=== PATIENT | male | born 1960 ===

== ENCOUNTER 2020-11-28 10:35 | Emergency (ER) | payer BC ==
[2020-11-28] MEDS: Nitroglycerin 0.4 MG Tab.SL SL PRN (11:03)
[2020-11-28] MEDS: Aspirin 81 MG Tab.Chew PO ONE (11:03)
[2020-11-28 11:19] LABS: CHLORIDE,CL 103 mmol/L (98-107); SODIUM,NA 140 mmol/L (136-145)
[2020-11-28] MEDS: Morphine 4 MG/ML Syringe IVPUSH ONE (11:24)
[2020-11-28] MEDS: Ondansetron 4 MG/2 ML SDV IVPUSH ONE (11:24)
[2020-11-28] MEDS: Morphine 4 MG/ML Syringe ONE (11:37)
[2020-11-28] MEDS: Ondansetron 4 MG/2 ML SDV ONE (11:37)
[2020-11-28] MEDS: GI Cocktail Oral Solution 30 ML PO ONE (11:41)
--- NOTE | 2020-11-28 12:02 | EDM.PDOC ---
ED HPI GENERAL MEDICAL PROBLEM - General Chief Complaint: Chest Pain Stated Complaint: chest pain Time Seen by Provider: 11/28/20 10:56 Source of Information: Reports: Patient History Limitations: Reports: No Limitations - History of Present Illness INITIAL COMMENTS - FREE TEXT/NARRATIVE: Centralized substernal chest pain that started yesterday. Radiates to left chest with deep breathing. No other radiation. Worsening. No history of HI. Does take BP meds. Family history of CAD/heart failure. No recent injury/illness. No history Covid but has had both immunizations. Denies fevers/chills/HEENT changes. No SOB/cough/wheezing. No sweating/nausea/emesis/bowel changes. No focal neuro changes or other pain complaints. - Related Data Allergies Allergy/AdvReac Type Severity Reaction Status Date / Time No Known Allergies Allergy Verified 11/28/20 10:36 Home Meds: Home Meds Aspirin [Children's Aspirin] 81 mg PO DAILY 11/28/20 [History] Simvastatin 10 mg PO DAILY 11/28/20 [History] lisinopriL [Lisinopril] 10 mg PO DAILY 11/28/20 [History] Past Medical History Cardiovascular History: Reports: High Cholesterol, Hypertension Social & Family History - Tobacco Use Tobacco Use Status *Q: Former Tobacco User Tobacco Use Within Last Twelve Months: Cigarettes Tobacco Use Comment: Quit within the last year - Alcohol Use Alcohol Use History: Yes Alcohol Use Frequency: Socially - Recreational Drug Use Recreational Drug Use: No Drug Use in Last 12 Months: No ED ROS GENERAL - Review of Systems Review Of Systems: Comprehensive ROS is negative, except as noted in HPI. ED EXAM, GENERAL - Physical Exam Exam: See Below Exam Limited By: No Limitations General Appearance: Alert, Anxious, Moderate Distress Eye Exam: Bilateral Eye: EOMI, PERRL Ears: Normal External Exam, Hearing Grossly Normal Nose: No: Nasal Deformity, Nasal Swelling, Nasal Drainage Throat/Mouth: Normal Lips, Normal Voice, No Airway Compromise Head: Atraumatic, Normocephalic Neck: Normal Inspection, Supple, Non-Tender, Full Range of Motion Respiratory/Chest: No Respiratory Distress, Lungs Clear, Normal Breath Sounds, No Accessory Muscle Use, Chest Non-Tender Cardiovascular: No Edema, No Murmur, Tachycardia GI/Abdominal: Soft, Non-Tender, No Distention (Male) Exam: Deferred Rectal (Males) Exam: Deferred Back Exam: Normal Inspection Extremities: Normal Inspection, Normal Capillary Refill Neurological: Alert, Oriented, Normal Cognition, Normal Gait, No Motor/Sensory Deficits Psychiatric: Normal Affect, Normal Mood Skin Exam: Warm, Dry, Intact, Normal Color #1 Interpretation EKG Date: 11/28/20 Time: 10:41 Rhythm: A-Flutter (sinus tach) Rate (Beats/Min): 118 [place]: Normal P-Wave: Present QRS: Normal ST-T: Other (diffuse elevation noted,most pronounced V1, V2, II, AVF) QT: Normal Comparison: NA - No Prior EKG Course - Vital Signs Last Recorded V/S: Last Vital Signs Temp Pulse Resp BP 158/88 H 11/28/20 11:03 Pulse Ox - Orders/Labs/Meds Orders: Active Orders 24 hr Category Date Time Status EKG Documentation Completion [RC] ASDIRECTED Care 11/28/20 10:39 Active EKG Documentation Completion [RC] ASDIRECTED Care 11/28/20 10:56 Active Chest 1V Frontal [CR] Stat Exams 11/28/20 11:22 Taken Nitroglycerin [Nitrostat] Med 11/28/20 10:58 Active 0.4 mg SL Q5M PRN Medication Orders Nitroglycerin (Nitroglycerin 0.4 Mg Tab.Sl) 0.4 mg SL Q5M PRN PRN Reason: Chest Pain Last Admin: 11/28/20 11:03 Dose: 0.4 mg Documented by: PATRICK Labs: Laboratory Tests 11/28/20 11/28/20 11/28/20 Range/Units 10:45 10:45 10:45 WBC 11.9 H (4.0-10.2) K/uL RBC 5.18 (4.33-5.41) M/uL Hgb 15.7 (13.1-16.8) g/dL Hct 45.7 (39.0-49.0) % MCV 88.2 (84.0-98.0) fL MCH 30.3 (28.2-33.3) pg MCHC 34.4 (31.7-36.0) g/dL RDW 13.1 (11.2-14.1) % Plt Count 211 (150-350) K/uL Neut % (Auto) 76.4 (45.0-80.0) % Lymph % (Auto) 12.7 (10.0-50.0) % [place] % (Auto) 9.9 (2.0-14.0) % Eos % (Auto) 0.7 (0.0-5.0) % Baso % (Auto) 0.3 (0.0-2.0) % Neut # (Auto) 9.12 H (1.40-7.00) K/uL Lymph # (Auto) 1.52 (0.50-3.50) K/uL [place] # (Auto) 1.18 H (0.00-1.00) K/uL Eos # (Auto) 0.08 (0.00-0.50) K/uL Baso # (Auto) 0.04 (0.00-0.20) K/uL D-Dimer, Quantitative 310 (0-400) ng/mL Sodium 140 (136-145) mmol/L Potassium 4.2 (3.5-5.1) mmol/L Chloride 103 (98-107) mmol/L Carbon Dioxide 26.5 (21.0-32.0) mmol/L BUN 21 H (7-18) mg/dL Creatinine 0.86 (0.51-1.17) mg/dL Est Cr Clr Drug Dosing TNP Estimated GFR (MDRD) > 60 mL/min Glucose 127 H (70-99) mg/dL Lactic Acid (0.4-2.0) mmol/L Calcium 9.1 (8.5-10.1) mg/dL Magnesium 1.8 (1.8-2.4) mg/dL Total Bilirubin 0.9 (0.2-1.0) mg/dL AST 18 (15-37) U/L ALT 41 (12-78) U/L Alkaline Phosphatase 69 (46-116) IU/L Troponin I 0.000 (0.000-0.056) ng/mL NT-Pro-B Natriuret Pep 74 (0-125) pg/mL Total Protein 7.7 (6.4-8.2) g/dL Albumin 4.0 (3.4-5.0) g/dL 11/28/20 Range/Units 10:45 WBC (4.0-10.2) K/uL RBC (4.33-5.41) M/uL Hgb (13.1-16.8) g/dL Hct (39.0-49.0) % MCV (84.0-98.0) fL MCH (28.2-33.3) pg MCHC (31.7-36.0) g/dL RDW (11.2-14.1) % Plt Count (150-350) K/uL Neut % (Auto) (45.0-80.0) % Lymph % (Auto) (10.0-50.0) % [place] % (Auto) (2.0-14.0) % Eos % (Auto) (0.0-5.0) % Baso % (Auto) (0.0-2.0) % Neut # (Auto) (1.40-7.00) K/uL Lymph # (Auto) (0.50-3.50) K/uL [place] # (Auto) (0.00-1.00) K/uL Eos # (Auto) (0.00-0.50) K/uL Baso # (Auto) (0.00-0.20) K/uL D-Dimer, Quantitative (0-400) ng/mL Sodium (136-145) mmol/L Potassium (3.5-5.1) mmol/L Chloride (98-107) mmol/L Carbon Dioxide (21.0-32.0) mmol/L BUN (7-18) mg/dL Creatinine (0.51-1.17) mg/dL Est Cr Clr Drug Dosing Estimated GFR (MDRD) mL/min Glucose (70-99) mg/dL Lactic Acid 1.7 (0.4-2.0) mmol/L Calcium (8.5-10.1) mg/dL Magnesium (1.8-2.4) mg/dL Total Bilirubin (0.2-1.0) mg/dL AST (15-37) U/L ALT (12-78) U/L Alkaline Phosphatase (46-116) IU/L Troponin I (0.000-0.056) ng/mL NT-Pro-B Natriuret Pep (0-125) pg/mL Total Protein (6.4-8.2) g/dL Albumin (3.4-5.0) g/dL Meds: Medications Generic Name Dose Route Start Last Admin Trade Name Freq PRN Reason Stop Dose Admin Nitroglycerin 0.4 mg 11/28/20 10:58 11/28/20 11:03 Nitroglycerin 0.4 Mg Tab.Sl SL 0.4 mg Q5M PRN Administration Chest Pain Discontinued Medications Generic Name Dose Route Start Last Admin Trade Name Freq PRN Reason Stop Dose Admin Al Hydroxide/Mg Hydroxide 30 ml 11/28/20 11:22 11/28/20 11:41 Gi Cocktail Oral Solution 30 Ml PO 11/28/20 11:23 30 ml ONETIME ONE Administration Aspirin 324 mg 11/28/20 10:57 11/28/20 11:03 Aspirin 81 Mg Tab.Chew PO 11/28/20 10:58 324 mg ONETIME ONE Administration Morphine Sulfate 4 mg 11/28/20 11:19 11/28/20 11:24 Morphine 4 Mg/Ml Syringe IVPUSH 11/28/20 11:20 4 mg ONETIME ONE Administration Morphine Sulfate Confirm 11/28/20 11:20 11/28/20 11:37 Morphine 4 Mg/Ml Syringe Administered 11/28/20 11:21 Not Given Dose 4 mg .ROUTE .STK-MED ONE Ondansetron HCl 4 mg 11/28/20 11:19 11/28/20 11:24 Ondansetron 4 Mg/2 Ml Sdv IVPUSH 11/28/20 11:20 4 mg ONETIME ONE Administration Ondansetron HCl Confirm 11/28/20 11:20 11/28/20 11:37 Ondansetron 4 Mg/2 Ml Sdv Administered 11/28/20 11:21 Not Given Dose 4 mg .ROUTE .STK-MED ONE - Re-Assessments/Exams Free Text/Narrative Re-Assessment/Exam: 11/28/20 12:33 Xray unremarkable. EKG showed mild ST elevation that appeared to be more pronounced in V1, V2, II. Received ASA. Nitro did not affect the pain. MS nuñez Call placed to [facility] and reviewed EKG with Dr. Ortiz from Cardiology. He felt that there was a diffuse pattern of elevation throughout the leads and leaned towards myocarditis/pericarditis. Troponin reported as negative. Transfer arranged to [facility] so that patient could receive cardiac echo and have chest pain workup continued at their facility. DDimer/lactic/proBNP negative. Minimal elevation WBC. accepting hospitalist at [facility]. Departure - Departure Time of Disposition: 12:02 Disposition: DC/Tfer to Acute Hospital 02 Condition: Good Clinical Impression: Chest pain Qualifiers: Chest pain type: unspecified Qualified Code(s): R07.9 - Chest pain, unspecified - Discharge Information *PRESCRIPTION DRUG MONITORING PROGRAM REVIEWED*: Not Applicable *COPY OF PRESCRIPTION DRUG MONITORING REPORT IN PATIENT RADHA: Not Applicable Referrals: Fco Peacock PA [Primary Care Provider] - Forms: ED Department Discharge Sepsis Event Note (ED) - Focused Exam Vital Signs: Vital Signs BP 11/28/20 11:03 158/88 H - My Orders Last 24 Hours: My Active Orders 11/28/20 10:39 EKG Documentation Completion [RC] ASDIRECTED 11/28/20 10:56 EKG Documentation Completion [RC] ASDIRECTED 11/28/20 10:58 Nitroglycerin [Nitrostat] 0.4 mg SL Q5M PRN 11/28/20 11:22 Chest 1V Frontal [CR] Stat - Assessment/Plan Last 24 Hours: My Active Orders 11/28/20 10:39 EKG Documentation Completion [RC] ASDIRECTED 11/28/20 10:56 EKG Documentation Completion [RC] ASDIRECTED 11/28/20 10:58 Nitroglycerin [Nitrostat] 0.4 mg SL Q5M PRN 11/28/20 11:22 Chest 1V Frontal [CR] Stat
== END 2020-11-28 12:20 ==
LOC: LL.ED 10:35
DX: R07.2 Precordial pain (principal); I10 Essential (primary) hypertension; E78.00 Pure hypercholesterolemia, unspecified; R00.0 Tachycardia, unspecified; Z87.891 Personal history of nicotine dependence; Z79.82 Long term (current) use of aspirin; Z79.899 Other long term (current) drug therapy
CPT/HCPCS: 36415; 71045; 80053; 83605; 83735; 83880; 84484; 85025; 85379; 93005; 93010; 96374; 96375; 99284; 99285-25; A9270-GY; J2270; J2405

== ENCOUNTER 2020-12-13 22:59 | Emergency (ER) | payer BC ==
--- NOTE | 2020-12-13 23:32 | EDM.PDOC ---
ED HPI GENERAL MEDICAL PROBLEM - General Chief Complaint: Chest Pain Stated Complaint: Chest pain, SOB Time Seen by Provider: 12/13/20 23:10 Source of Information: Reports: Patient History Limitations: Reports: No Limitations - History of Present Illness INITIAL COMMENTS - FREE TEXT/NARRATIVE: Patient presents to the ED for chest pain, increased shortness of breath today. Was seen in the last two weeks at this ED for similar complaint, had ST changes, sent to [place] for evaluation. Had echocardiogram and diagnosed with pericarditis, probably due to viral illness. Sent home on colchicine and nsaids. Was tolerating this well, until this afternoon when he started to have increased chest pressure in the epigastric area and increased shortness of breath with laying flat. He took some motrin and attempted to go to bed. Was unable to lay flat and became concerned so called EMS. Transported without intervention other than oxygen, but room airsats 98%. States that pain was 8/10 earlier and when laying down. Now is a 6/10 and better sitting upright. pain is substernal, dull and constant. Feels short of breath but not diaphoretic or nauseated. no sick contacts, no chest trauma, no tick or bug bites. Has had his moderna vaccines. 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 Mid-Sternal Chest Pain Score (Numeric/FACES): 6 - Related Data Allergies Allergy/AdvReac Type Severity Reaction Status Date / Time No Known Allergies Allergy Verified 12/13/20 23:02 Home Meds: Home Meds Aspirin [Children's Aspirin] 81 mg PO DAILY 11/28/20 [History] Simvastatin 10 mg PO DAILY 11/28/20 [History] lisinopriL [Lisinopril] 10 mg PO DAILY 11/28/20 [History] Colchicine 0.6 mg PO BID 12/13/20 [History] Ibuprofen 200 mg PO TID 12/13/20 [History] Omeprazole 20 mg PO DAILY 12/13/20 [History] Hydrocodone/Acetaminophen [HYDROcodone-Acetaminophen 5-325 MG] 1 each PO Q6HR #15 tablet 12/14/20 [Rx] Past Medical History Cardiovascular History: Reports: High Cholesterol, Hypertension, Other (See Below) (pericarditis) Gastrointestinal History: Reports: GERD Social & Family History - Tobacco Use Tobacco Use Status *Q: Former Tobacco User - Caffeine Use Caffeine Use: Reports: Coffee ED ROS GENERAL - Review of Systems Review Of Systems: See Below Constitutional: Reports: No Symptoms. Denies: Fever, Chills, Weakness, Fatigue HEENT: Reports: No Symptoms. Denies: Sinus Problem, Throat Swelling Respiratory: Reports: No Symptoms, Shortness of Breath, Pleuritic Chest Pain. Denies: Cough Cardiovascular: Reports: No Symptoms, Chest Pain, Dyspnea on Exertion. Denies: Lightheadedness Endocrine: Reports: No Symptoms. Denies: Fatigue GI/Abdominal: Reports: No Symptoms. Denies: Abdominal Pain, Nausea, Vomiting Musculoskeletal: Reports: No Symptoms. Denies: Neck Pain, Shoulder Pain, Muscle Pain, Muscle Stiffness Skin: Reports: No Symptoms. Denies: Rash, Change in Color Neurological: Reports: No Symptoms. Denies: Confusion, Dizziness, Headache, Seizure, Tremors Psychiatric: Reports: No Symptoms Hematologic/Lymphatic: Reports: No Symptoms. Denies: Easy Bleeding, Easy Bruising ED EXAM, GENERAL - Physical Exam Exam: See Below Exam Limited By: No Limitations General Appearance: Alert, WD/WN, No Apparent Distress Eye Exam: Bilateral Eye: EOMI, Normal Inspection, PERRL Ears: Normal External Exam Nose: Normal Inspection Throat/Mouth: Normal Inspection, Normal Lips, Normal Voice Head: Atraumatic Neck: Normal Inspection, Supple, Full Range of Motion Respiratory/Chest: No Respiratory Distress, Lungs Clear, Normal Breath Sounds, No Accessory Muscle Use, Chest Non-Tender, Other (does splint with deep inspiration) Cardiovascular: Normal Peripheral Pulses, Regular Rate, Rhythm, No Rub, Other (some pvcs heard) GI/Abdominal: Normal Bowel Sounds Back Exam: Normal Inspection Extremities: Normal Inspection, Normal Range of Motion Neurological: Alert, Oriented, CN II-XII Intact, Normal Cognition #1 Interpretation EKG Date: 12/13/20 Time: 23:01 Rhythm: NSR [place]: Normal P-Wave: Present QRS: Normal ST-T: Other (non specific changes) QT: Normal Comparison: Other: (improved from previous EKG, which had diffuse st elevations) Course - Vital Signs Last Recorded V/S: Last Vital Signs Temp 36.3 C 12/13/20 23:20 Pulse 100 12/13/20 23:56 Resp 20 12/13/20 23:56 BP 136/82 12/13/20 23:56 Pulse Ox 99 12/13/20 23:56 - Orders/Labs/Meds Orders: Active Orders 24 hr Category Date Time Status Cardiac Monitoring [RC] . DIRECTED Care 12/13/20 23:19 Active Ang Chest [CT] Stat Exams 12/13/20 23:19 Ordered Acetaminophen/HYDROcodone [[place] 325-5 MG] Med 12/14/20 00:27 Once 1 tab PO ONETIME ONE Labs: Laboratory Tests 12/13/20 12/13/20 12/13/20 Range/Units 23:10 23:10 23:30 WBC 13.9 H (4.0-10.2) K/uL RBC 4.65 (4.33-5.41) M/uL Hgb 13.9 D (13.1-16.8) g/dL Hct 40.4 (39.0-49.0) % MCV 86.9 (84.0-98.0) fL MCH 29.9 (28.2-33.3) pg MCHC 34.4 (31.7-36.0) g/dL RDW 12.6 (11.2-14.1) % Plt Count 250 (150-350) K/uL Neut % (Auto) 80.4 H (45.0-80.0) % Lymph % (Auto) 9.5 L (10.0-50.0) % [place] % (Auto) 8.9 (2.0-14.0) % Eos % (Auto) 1.0 (0.0-5.0) % Baso % (Auto) 0.2 (0.0-2.0) % Neut # (Auto) 11.21 H (1.40-7.00) K/uL Lymph # (Auto) 1.32 (0.50-3.50) K/uL [place] # (Auto) 1.24 H (0.00-1.00) K/uL Eos # (Auto) 0.14 (0.00-0.50) K/uL Baso # (Auto) 0.03 (0.00-0.20) K/uL ESR 26 H (0-20) mm/hr D-Dimer, Quantitative 572 H (0-400) ng/mL Sodium 138 (136-145) mmol/L Potassium 4.3 (3.5-5.1) mmol/L Chloride 106 (98-107) mmol/L Carbon Dioxide 25.3 (21.0-32.0) mmol/L Anion Gap 6.7 L (7-15) meq/L BUN 21 H (7-18) mg/dL Creatinine 1.22 H (0.51-1.17) mg/dL Est Cr Clr Drug Dosing 72.44 mL/min Estimated GFR (MDRD) > 60 mL/min Glucose 155 H (70-99) mg/dL Calcium 8.3 L (8.5-10.1) mg/dL Total Bilirubin 0.3 (0.2-1.0) mg/dL AST 22 (15-37) U/L ALT 46 (12-78) U/L Alkaline Phosphatase 102 (46-116) IU/L Troponin I High Sens 4 (<=76) ng/L C-Reactive Protein 1.2 H (<=0.9) mg/dL Total Protein 7.1 (6.4-8.2) g/dL Albumin 3.6 (3.4-5.0) g/dL Meds: Medications Discontinued Medications Generic Name Dose Route Start Last Admin Trade Name Amie PRN Reason Stop Dose Admin Iopamidol 100 ml 12/13/20 23:28 12/13/20 23:51 Iopamidol 755 Mg/Ml 100 Ml Bottle IVPUSH 12/13/20 23:29 100 ml ONETIME STA Administration Ketorolac Tromethamine 30 mg 12/13/20 23:50 12/13/20 23:54 Ketorolac 30 Mg/Ml Sdv IVPUSH 12/13/20 23:51 30 mg ONETIME ONE Administration Morphine Sulfate 2 mg 12/13/20 23:21 12/13/20 23:33 Morphine 2 Mg/Ml Syringe IVPUSH 12/13/20 23:22 2 mg ONETIME ONE Administration - Re-Assessments/Exams Free Text/Narrative Re-Assessment/Exam: 12/13/20 23:46 Patient presents with recent history of pericarditis, negative echocardiogram and on NSAID therapy for this. Will give morphine for the chest pain, check inflammatory markers, troponin and get chest angio ct to rule out pe and to see amount of pericardial fluid. 12/13/20 23:49 slight leukocytosis, elevated ddimer, and crp. 12/14/20 00:[address] and had significant discomfort with laying down. Will give toradol as the morphine did not help. 12/14/20 00:29 CT with small pericardial effusion, lining enhanced, not with tamponade, no PE, no pneumonia, no pneumothorax, normal aorta. Discussed with radiologist. Discussed with patient. Will give a hydrocodone now, script for home. NEeds to call cardiology tomorrow Departure - Departure Time of Disposition: 00:32 Disposition: Home, Self-Care 01 Condition: Good Clinical Impression: Pericarditis Prescriptions: Hydrocodone/Acetaminophen [HYDROcodone-Acetaminophen 5-325 MG] 1 each PO Q6HR #15 tablet Instructions: Pericarditis Referrals: Fco Peacock PA [Primary Care Provider] - Forms: ED Department Discharge Additional Instructions: Continue your current medication. Use the hydrocodone for pain. This will cause constipation. Call your director financial services and discuss that testing today revealed slight elevation of your CRP, sed rate and white blood cell count consistent with your pericarditis. CT scan did not find a blood clot, pneumonia or problems with your aorta. There is still a small pericardial effusion and CT is less sensitive than ultrasound to evaluate this. There were no signs of large effusion or tamponade. Sepsis Event Note (ED) - Evaluation Sepsis Screening Result: No Definite Risk - Focused Exam Vital Signs: Vital Signs Temp Pulse Resp BP Pulse Ox 12/13/20 23:56 100 20 136/82 99 12/13/20 23:34 101 H 15 132/64 99 12/13/20 23:20 36.3 C 102 H 20 165/67 H 100 - My Orders Last 24 Hours: My Active Orders 12/13/20 23:19 Cardiac Monitoring [RC] . DIRECTED Ang Chest [CT] Stat 12/14/20 00:27 Acetaminophen/HYDROcodone [[place] 325-5 MG] 1 tab PO ONETIME ONE - Assessment/Plan Last 24 Hours: My Active Orders 12/13/20 23:19 Cardiac Monitoring [RC] . DIRECTED Ang Chest [CT] Stat 12/14/20 00:27 Acetaminophen/HYDROcodone [[place] 325-5 MG] 1 tab PO ONETIME ONE
[2020-12-13] MEDS: Morphine 2 MG/ML SYRINGE IVPUSH ONE (23:33)
[2020-12-13 23:40] LABS: ANION GAP 6.7 meq/L (7-15); CHLORIDE,CL 106 mmol/L (98-107); SODIUM,NA 138 mmol/L (136-145)
[2020-12-13] MEDS: Iopamidol 755 Mg/ML 100 ML Bottle IVPUSH STA (23:51)
[2020-12-13] MEDS: Ketorolac 30 MG/ML SDV IVPUSH ONE (23:54)
[2020-12-14] MEDS: Acetaminophen/HYDROcodone 325-5 MG Tab PO ONE (00:50)
== END 2020-12-14 01:00 | disposition home or self-care (01) ==
LOC: LL.ED 22:59
DX: I31.9 Disease of pericardium, unspecified (principal); E78.00 Pure hypercholesterolemia, unspecified; I10 Essential (primary) hypertension; K21.9 Gastro-esophageal reflux disease without esophagitis; Z79.899 Other long term (current) drug therapy; Z79.82 Long term (current) use of aspirin; Z87.891 Personal history of nicotine dependence
CPT/HCPCS: 36415; 71275; 80053; 84484; 85025; 85379; 85652; 86140; 96374; 96375; 99285; A9270; J1885; J2270; Q9967; 93010; 99284